=== PATIENT | female | born 1965 | race Caucasian/White ===

== ENCOUNTER 2022-06-25 17:13 | Emergency (ER) | payer MEDICAID, SELFPAY ==
[2022-06-25 17:23] VITALS: BP 128/78; PULSE 68; RESP 18; TEMP 36.4; O2SAT 100; BMI 22.3
--- NOTE | 2022-06-25 17:27 | ED_ITS ---
HPI - General Adult General Time Seen by Provider: 17:27 Date Seen: 06/25/22 Chief complaint: Headache/Migraine Stated complaint: Headache, nausea Time Seen by Provider: 06/25/22 17:20 Source: patient and RN notes reviewed Mode of arrival: ambulatory Limitations: no limitations History of Present Illness HPI narrative: Patient is a 56-year-old female coming in with a headache. She had a significant frontal headache this morning, likely a walker at 4:30 a.m.. She started having nausea and vomiting almost immediately. She does get headaches but usually not this severe. She states she has had maybe 1 other that was this bad that she thought was more migraine like. Her typical course is she will take 2 Advil go back to bed. She knew she would not be able to keep Advil down though this morning. She was throwing up even water. She has not really been able to keep anything in until she started taking small sips of Gatorade along little while ago. Since she has been doing the small sips of Gatorade, she admits she is starting to feel a bit better. She has maybe felt cold a few times but has not had a fever that she knows of. There has been no diarrhea. She traveled to [place] in April but otherwise no recent travel. There has been no numbness tingling, no incoordination of extremities, no visual changes. She feels it through her frontal forehead. Her mom reported the had multiple brain bleeds. She is not aware if this was an aneurysm for her mom but does not recollect being told that this was anything she was to worry about. She does worry that this could be a brain bleed for her. Related Data Home Medications Medication Instructions Recorded Confirmed No Known Home Medications 06/25/22 06/25/22 Allergies Allergy/AdvReac Type Severity Reaction Status Date / Time No Known Drug Allergies Allergy Verified 06/25/22 17:27 Review of Systems Status of ROS: Reports: 10 or more systems reviewed and unremarkable except as noted in History and below [facility] Social History Smoking Status: Never smoker Do you use any of these nicotine containing products: None Second hand tobacco smoke exposure: No How often do you have a drink containing alcohol: never How often do you have six or more drinks on one occasion: Never AUDIT-C Alcohol total score: 0 Non-prescribed substance use: denies use service: No Exam Const: Vital Signs, click to edit/add: Vital Signs - 24 hr 06/25/22 17:23 06/25/22 18:33 06/25/22 18:35 Temperature 97.5 F L Pulse Rate 55 L 56 L Pulse Rate [Right Pulse Oximeter] 68 Respiratory Rate 18 Blood Pressure 119/68 Blood Pressure [Ri ght Upper Arm] 128/78 Pulse Oximetry 100 97 97 Oxygen Delivery Me thod Room Air Documenting provider has reviewed patient's vital signs: yes Common normals: no apparent distress, average body habitus, oriented x3, no limitations, healthy appearing, alert and well nourished General appearance: cooperative, comfortable and well kempt HENMT: Common normals: normocephalic, head/scalp atraumatic, hearing grossly normal bilaterally, external ears normal, EAC's normal, TM's normal bilaterally, external nose normal, nasal mucous membranes and turbinates normal, moist oral mucous membranes, oropharynx normal, dentition normal and gingiva normal Head and scalp: normocephalic and atraumatic Nose: external nose normal and nasal mucous membranes and turbinates normal External ear: external ears normal External auditory canal: EAC's normal Tympanic membrane: TM's normal bilaterally Eye: Common normals: PERRL, EOMs intact bilaterally, conjunctivae normal and no scleral icterus Conjunctiva: conjunctiva(e) normal Pupil: PERRL Neck & C-Spine: Common normals: full ROM, no lymphadenopathy, supple, no meningeal signs, no JVD and thyroid normal Thyroid: thyroid normal Resp: Common normals: normal respiratory effort, no retractions, no use of accessory muscles and clear to auscultation bilaterally Auscultation: clear to auscultation bilaterally Cardio: Common normals: no JVD, regular rate, regular rhythm, S1 normal heart sound, S2 normal heart sound, no gallops, no clicks and no murmurs Rate: regular rate Rhythm: regular rhythm Heart sounds: S1 normal and S2 normal GI: Common normals: Normal to inspection, nondistended, normoactive bowel sounds present, soft to palpation, non-tender, no hepatosplenomegaly and no masses Palpation: soft and no hepatosplenomegaly Extremity: Common normals: normal to inspection, full ROM, normal capillary refill, no joint enlargement, no clubbing, cyanosis or edema, no calf tenderness and no pedal edema Neuro: [place] Coma Scale: document GCS findings Barbara coma scale eye opening: Spontaneous (4) Barbara coma scale verbal response: Orientated (5) Barbara coma scale motor response: Obey commands (6) Barbara coma scale total score: 15 Common normals: oriented x3, CN's II-XII intact bilaterally, moves all extremities, no focal motor deficits, no sensory deficits noted and gait normal Sensorium/orientation: alert Meningeal signs: no meningeal signs Speech: speech normal Psych: Appearance: well kempt Course Course Hospital Course: We will obtain a head CT, established IV and start normal saline and 4 mg IV Zofran. If the head CT is negative can initiate some Toradol for this patient. We will do some basic labs. She really has no meningeal irritation in her neck, no neck pain. Did discuss doing COVID and influenza testing which she would like. My initial impression that this is a headache disorder, not intracranial bleeding. Reevaluation(s) Reevaluation #1: Reviewed with patient her white count is normal, electrolytes are normal, C- reactive protein is normal, influenza and COVID are negative. Her urine is showing some leukocyte esterase, will await the rest of the urinalysis but is possible there could be UTI. Head CT and my preliminary read showing no evidence of any brain bleed but do need to await the radiology over-read. She is had half of her fluids in, she states her headache is largely improved. Reviewed with her that this really clinically we would not be consistent with a brain bleed either. She would like Toradol if the head CT is negative. The head CT is negative, would not recommend further evaluation at this point with a lumbar puncture. I feel the risks of a lumbar puncture outweigh the benefits at this time given her headache is mostly resolved with some IV fluids. Time: 18:50 Reevaluation #2: The were able to find out that her mom had cerebral amyloid angiopathy. We did look this up and it is disease in elderly but also can be hereditary. Based on the type pain that was provided in the literature, she is not suspicious that she is from a this descent. However, I reviewed with her that I would recommend trying to see a specialist in Neurology or roller bil[employer] that new of this disorder to ensure that she did not need to be tested. Does not look like there was anything necessarily to be done to prevent or treat but it may be important to know as being on blood thinners, antiplatelet medicines may be limited if she were to be diagnosed with familial form. In any event, her headache is gone, she feels like she can eat and drink now. We will discharge to home for further outpatient follow-up. Time: 19:43 Vital Signs Vital signs: Initial Vital Signs Temperature 97.5 F L 06/25/22 17:23 Temperature Source Temporal Artery Scan 06/25/22 17:23 Pulse Rate 68 06/25/22 17:23 Respiratory Rate 18 06/25/22 17:23 Blood Pressure 128/78 06/25/22 17:23 Blood Pressure Mean 94 06/25/22 17:23 Blood Pressure Position Sitting 06/25/22 17:23 Pulse Oximetry 100 06/25/22 17:23 Oxygen Delivery Method 06/25/22 17:23 Vital Signs Temperature 97.5 F L 06/25/22 17:23 Pulse Rate 68 06/25/22 17:23 Respiratory Rate 18 06/25/22 17:23 Blood Pressure 128/78 06/25/22 17:23 Pulse Oximetry 100 06/25/22 17:23 Oxygen Delivery Method 06/25/22 17:23 Temperature 97.5 F L 06/25/22 17:23 Pulse Rate 56 L 06/25/22 18:35 Respiratory Rate 18 06/25/22 17:23 Blood Pressure 119/68 06/25/22 18:35 Pulse Oximetry 97 06/25/22 18:35 Oxygen Delivery Method 06/25/22 17:23 Medical Decision Making Lab Data Lab results reviewed: Yes I reviewed the patient's lab results Labs: Lab Results 06/25/22 06/25/22 06/25/22 Range/Units 17:41 17:41 17:41 WBC 5.40 (4.50-11.00) K/uL RBC 4.39 (4.00-5.20) m/uL Hgb 13.8 (12.0-16.0) gm/dL Hct 39.9 (33.0-51.0) % MCV 91 (80-100) fL MCH 31 (26-34) pg MCHC 35 (32-36) gm/dL RDW Coeff of [place] 12.0 (11.5-15.5) % Plt Count 199 (140-440) K/uL Neut % (Auto) 73.5 H (42.0-72.0) % Lymph % (Auto) 21.9 (20-44) % [place] % (Auto) 4.4 (0.0-11.0) % Eos % (Auto) 0.0 (0.0-7.0) % Baso % (Auto) 0.2 (0.0-3.0) % Neut # (Auto) 4.00 (1.7-7.0) K/uL Lymph # (Auto) 1.18 (0.90-2.90) K/uL [place] # (Auto) 0.20 (0.00-0.90) K/UL Eos # (Auto) 0.00 (0.00-0.50) K/uL Baso # (Auto) 0.01 (0.00-0.30) K/uL Abs Immat Gran (auto) 0.00 (0.00-0.30) K/uL Sodium 136 (135-149) mmol/L Potassium 4.0 (3.6-5.1) mmol/L Chloride 103 (96-114) mmol/L Carbon Dioxide 26 (20-32) mmol/L BUN 11 (7-30) mg/dL Creatinine 0.8 (0.5-1.5) mg/dL Estimated Creat Clear 83.04 Estimated GFR 87 ml/min Glucose 118 H (60-115) mg/dL Lactate (0.5-1.9) mmol/L Calcium 9.3 (8.4-10.6) mg/dL C-Reactive Protein < 0.5 L (0.5-1.0) mg/dL Urine Color (Yellow) Urine Appearance (Clear) Urine pH (5.0-8.5) Ur Specific [place] (1.000-1.030) Urine Protein (Negative) Urine Glucose (UA) (Negative) Urine Ketones (Negative) Urine Blood (Negative) Urine Nitrite (Negative) Urine Bilirubin (Negative) Urine Urobilinogen (0.2-1.0) Ur Leukocyte Esterase (Negative) Urine RBC (0-2) Urine WBC (0-5) Ur Squamous Epith Cells (None-Few) Urine Bacteria (None) SARS-CoV-2 (PCR) Negative SARS-CoV-2 (Negative) Influenza Type A (PCR) Negative PCR FLU A (Negative) Influenza Type B (PCR) Negative PCR FLU B (Negative) 06/25/22 06/25/22 Range/Units 17:41 18:28 WBC (4.50-11.00) K/uL RBC (4.00-5.20) m/uL Hgb (12.0-16.0) gm/dL Hct (33.0-51.0) % MCV (80-100) fL MCH (26-34) pg MCHC (32-36) gm/dL RDW Coeff of [place] (11.5-15.5) % Plt Count (140-440) K/uL Neut % (Auto) (42.0-72.0) % Lymph % (Auto) (20-44) % [place] % (Auto) (0.0-11.0) % Eos % (Auto) (0.0-7.0) % Baso % (Auto) (0.0-3.0) % Neut # (Auto) (1.7-7.0) K/uL Lymph # (Auto) (0.90-2.90) K/uL [place] # (Auto) (0.00-0.90) K/UL Eos # (Auto) (0.00-0.50) K/uL Baso # (Auto) (0.00-0.30) K/uL Abs Immat Gran (auto) (0.00-0.30) K/uL Sodium (135-149) mmol/L Potassium (3.6-5.1) mmol/L Chloride (96-114) mmol/L Carbon Dioxide (20-32) mmol/L BUN (7-30) mg/dL Creatinine (0.5-1.5) mg/dL Estimated Creat Clear Estimated GFR ml/min Glucose (60-115) mg/dL Lactate 0.8 (0.5-1.9) mmol/L Calcium (8.4-10.6) mg/dL C-Reactive Protein (0.5-1.0) mg/dL Urine Color Yellow (Yellow) Urine Appearance Clear (Clear) Urine pH 7.0 (5.0-8.5) Ur Specific [place] 1.010 (1.000-1.030) Urine Protein Negative (Negative) Urine Glucose (UA) Negative (Negative) Urine Ketones Negative (Negative) Urine Blood Negative (Negative) Urine Nitrite Negative (Negative) Urine Bilirubin Negative (Negative) Urine Urobilinogen 0.2 (0.2-1.0) Ur Leukocyte Esterase 2+ A (Negative) Urine RBC 0-2 (0-2) Urine WBC 5-10 A (0-5) Ur Squamous Epith Cells Few (None-Few) Urine Bacteria Few A (None) SARS-CoV-2 (PCR) (Negative) Influenza Type A (PCR) (Negative) Influenza Type B (PCR) (Negative) Imaging Data CT scan - head: Attestation: I have reviewed the pertinent imaging results. My impression: My preliminary review of her head CT is no acute bleed, wait radiology over- read. Radiologist's impression: Patient: KARLENE MURRELL Facility:?[facility] [place] Patient ID:?[id number] Site Patient ID:?[id number]. Site :?[id number] Study:?CT Head W/O-06/25/2022 6:18:45 PM Ordering Physician:Krystle Bob Final Report: INDICATION: Headache and nausea. TECHNIQUE: CT head without contrast. COMPARISON: None. FINDINGS: CSF spaces: Within normal limits for age. Brain parenchyma and extra-axial spaces: The mcclendon-white differentiation is normal. No sign of mass, hemorrhage, or midline shift. No extra-axial fluid collection. Skull base and calvarium: The visualized paranasal sinuses and mastoid air cells demonstrate no acute or significant findings. The visualized orbits are grossly unremarkable. No skull fractures. IMPRESSION: Unremarkable noncontrast head CT. Please note that all CT scans at this facility use dose modulation, iterative reconstruction, and/or weight-based dosing when appropriate to reduce radiation dose to as low as reasonably achievable. Dictated by Honorio Heath MD @ 06/25/2022 6:50:57 PM (Electronic Signature) Critical Care Time Critical Care Time Critical Care Time: No Discharge Plan Discharge Clinical Impression: Headache Condition: Stable Instructions: Acute Headache (ED) Additional Instructions: Can resume a normal diet. Should you have return of her headache, do recommend Tylenol and/or ibuprofen as you would normally do with an acute headache. If you are starting to experience increased headaches, follow up with her primary care provider for further discussion and management. Would also recommend talking to your primary care provider about the cerebral amyloid angiopathy and the fact that there are hereditary types. I a do not know enough about this disease and thus would recommend that you talk to a specialist in Neurology or genetics that might be able to help guide you better. Activity Level: Activity as Tolerated Discharge Diet: Regular Prescriptions: No Action No Known Home Medications Stand Alone Forms: [employer] Info Instructions
--- NOTE | 2022-06-25 17:41 | CRLHL7_ITS ---
For Patients: As a result of the Century Cures Act, medical imaging exams and procedure reports are released immediately into your electronic medical record. You may view this report before your referring provider. If you have questions, please contact your health care provider. INDICATION: Headache and nausea. TECHNIQUE: CT head without contrast. COMPARISON: None. FINDINGS: CSF spaces: Within normal limits for age. Brain parenchyma and extra-axial spaces: The mcclendon-white differentiation is normal. No sign of mass, hemorrhage, or midline shift. No extra-axial fluid collection. Skull base and calvarium: The visualized paranasal sinuses and mastoid air cells demonstrate no acute or significant findings. The visualized orbits are grossly unremarkable. No skull fractures. IMPRESSION: Unremarkable noncontrast head CT. Please note that all CT scans at this facility use dose modulation, iterative reconstruction, and/or weight-based dosing when appropriate to reduce radiation dose to as low as reasonably achievable. Dictated by Honorio Heath MD @ 06/25/2022 6:50:57 PM (Electronically Signed)
[2022-06-25 17:57] LABS: Lactate* 0.8 mmol/L (0.5-1.9)
[2022-06-25] MEDS: ONDANSETRON 2 MG/ML inj 4 MG IVP (17:58)
[2022-06-25 17:59] LABS: Basophils Absolute Auto 0.01 K/uL (0.00-0.30); Basophils Percent Auto 0.2 % (0.0-3.0); Hematocrit 39.9 % (33.0-51.0); Hemoglobin* 13.8 gm/dL (12.0-16.0); Lymphocytes Absolute Auto 1.18 K/uL (0.90-2.90); Lymphocytes Percent Auto 21.9 % (20-44); Mean Corpuscular HGB Conc 35 gm/dL (32-36); Mean Corpuscular Hemoglobin 31 pg (26-34); Mean Corpuscular Volume 91 fL (80-100); Monocytes Percent Auto 4.4 % (0.0-11.0); Neutrophils Percent Auto 73.5 % (42.0-72.0); Platelet Count* 199 K/uL (140-440); Red Blood Count 4.39 m/uL (4.00-5.20)
[2022-06-25] MEDS: 0.9 % SODIUM CHLORIDE 1000 ml 1,000 ML 500 ML IV (17:59)
[2022-06-25 18:02] LABS: Slide Review Reflex No
[2022-06-25 18:17] LABS: Chloride* 103 mmol/L (96-114); Sodium* 136 mmol/L (135-149)
[2022-06-25 18:20] LABS: Blood Urea Nitrogen* 11 mg/dL (7-30); Carbon Dioxide* 26 mmol/L (20-32); Creatinine* 0.8 mg/dL (0.5-1.5); Est. Creatinine Clearance* 83.04; Estimated Glomerular Filt Rate 87 ml/min
[2022-06-25 18:21] LABS: Calcium* 9.3 mg/dL (8.4-10.6); Glucose* 118 mg/dL (60-115)
[2022-06-25 18:24] LABS: C Reactive Protein* < 0.5 mg/dL (0.5-1.0)
[2022-06-25 18:33] VITALS: PULSE 55; O2SAT 97
[2022-06-25 18:35] VITALS: BP 119/68; PULSE 56; O2SAT 97
[2022-06-25 18:38] LABS: Appearance Urine Clear (Clear); Bilirubin Urine Negative (Negative); Blood Urine Negative (Negative); Color Urine Yellow (Yellow); Glucose Urine Negative (Negative); Ketones Urine Negative (Negative); Leukocyte Esterase Urine 2+ (Negative); Nitrite Urine Negative (Negative); Protein Urine Negative (Negative); Urobilinogen Urine 0.2 (0.2-1.0)
[2022-06-25 18:44] LABS: PCR FLU A Negative PCR FLU A (Negative); PCR FLU B Negative PCR FLU B (Negative)
[2022-06-25 18:45] LABS: SARS PCR* Negative SARS-CoV-2 (Negative)
[2022-06-25 18:55] LABS: Bacteria Urine Few; RBC Urine 0-2 (0-2); Squamous Epithelial Cell Urine Few (None-Few)
[2022-06-25 19:01] VITALS: BP 116/72; PULSE 54; O2SAT 99
[2022-06-25] MEDS: KETOROLAC 15 MG/ML inj IVP (19:13)
[2022-06-25 19:31] VITALS: BP 128/71; PULSE 57; O2SAT 100
[2022-06-25 20:02] VITALS: BP 125/69; PULSE 60; O2SAT 99
== END 2022-06-25 20:14 | disposition home or self-care (01) ==
PROVIDERS: Emergency Provider Family Medicine
DX: R51.9 Headache, unspecified (principal)
CPT/HCPCS: 36415; 70450; 80048; 81001; 83605; 85025; 86140; 87086; 87631; 96374; 96375; 99284; J1885; J2405; J7030